=== PATIENT | female | born 1930 | race Caucasian/White ===

== ENCOUNTER → 2016-12-01 | Outpatient (REF) ==
[~2016-12-01] MED LIST: ASPIRIN 81M81 MG/TA2 PO; ASPIRIN E.C. 8181 MG PO; CALCIUM 600 PLU1 TAB PO; CALCIUM1 CAP PO; CYMBALTA 30MG30 MG PO; LEXAPRO 10MG10 MG PO; LOMOTIL 0.025 M1 TAB PO; MESTINON 6060 MG/TAB PO; MESTINON60 MG PO; NORVASC2.5 MG PO; PERCOCET 325 MG1 TA2 PO; PROTONIX40 MG PO; SYNTHROID0.025 MG PO; SYNTHROID0.1 MG/TAB PO; TYLENOL 325MG325 MG PO; TYLENOL ARTHRI650 M1 PO; ZOFRAN 4MG T4 MG/TAB PO; ZOLOFT50 MG PO
[2016-12-01 18:54] LABS: THYROID STIMULATING HORMONE 2.64 uIU/mL (0.465-4.680)
== END ==
LOC: ZLAB.WCH 18:06
PROVIDERS: Internal Medicine
DX: Z01.89 Encounter for other specified special examinations (principal)

== ENCOUNTER 2016-12-10 18:25 | Inpatient (IN) | payer MEDICARE, OTHER ==
[2016-12-10] VITALS (20 sets, daily range): BP systolic 156–163; BP diastolic 53–62; PULSE 54–60; TEMP 97.1–97.8; O2SAT 99–100
[~2016-12-10] VITALS: Ht 157.5 cm; Wt 61.0 kg
[~2016-12-10 18:25] MED LIST changes: -NORVASC2.5 MG PO
[2016-12-10 18:36] LABS: BASO # 0.1 (0.0-0.2); BASO % 0.6 % (0.0-2.0); EOS # 0.4 (0.0-0.7); EOS % 4.5 % (0-4.0); GRAN # 3.9 (1.4-6.5); GRAN % 44.5 % (42.2-75.2); HEMOGLOBIN 12.8 g/dl (12.5-16.0); LYMPH # 3.8 (1.2-3.4); LYMPH % 42.7 % (20.0-51.0); MEAN CELL VOLUME 94 fl (80.0-100.0); MEAN CORPUSCULAR HEMOGLOBIN 31 pg (27.0-31.0); MEAN CORPUSCULAR HGB CONC 33 g/dl (33.0-37.0); MEAN PLATELET VOLUME 10.6 fl (7.4-10.4); MONO # 0.7 (0.1-0.6); MONO % 7.6 % (1.7-9.3); PLATELET COUNT 248 K/mm3 (130-400); RED BLOOD COUNT 4.17 M/mm3 (4.10-5.30); REDCELL DISTRIBUTION WIDTH-CV 12.9 % (11.5-14.5); WHITE BLOOD COUNT 8.8 K/mm3 (4.8-10.8)
[2016-12-10 18:40] LABS: PROTHROMBIN TIME 10.7 SECONDS (9.7-12.8)
[2016-12-10 18:43] LABS: PARTIAL THROMBOPLASTIN TIME 30.4 SECONDS (26.0-37.0)
[2016-12-10 18:59] LABS: ADJUSTED CALCIUM 9.3 mg/dL (8.4-10.2); ALANINE AMINOTRANSFERASE 16 U/L (9-52); ALBUMIN 3.6 gm/dL (3.5-5.0); ALKALINE PHOSPHATASE 78 U/L (50-136); ANION GAP 7 mmol/L (7-16); BILIRUBIN,TOTAL 0.6 mg/dL (0.0-1.0); BLOOD UREA NITROGEN 14 mg/dL (7-17); CARBON DIOXIDE 26 mmol/L (22-30); CHLORIDE 106 mmol/L (98-107); CREATININE, serum 0.86 mg/dL (0.52-1.25); GLUCOSE 92 mg/dL (74-106); POTASSIUM 3.8 mmol/L (3.4-5.0); SODIUM 140 mmol/L (137-145); TOTAL PROTEIN 6.2 gm/dL (6.4-8.2)
[2016-12-10 19:19] LABS: TROPONIN-I < 0.012 ng/mL (0.000-0.034)
[2016-12-10 19:36] LABS: B-TYPE NATRIURETIC PEPTIDE 474 pg/mL (0-450)
[2016-12-10 19:55] LABS: PH 7 (5-8); URINE APPEARANCE Clear; URINE BACTERIA Rare /hpf; URINE BILIRUBIN Negative (NEGATIVE); URINE BLOOD 1+ (NEGATIVE); URINE COLOR Straw; URINE GLUCOSE Negative (NEGATIVE); URINE KETONE Negative (NEGATIVE); URINE RBC 0-2 /hpf; URINE UROBILINOGEN Negative (NEGATIVE); URINE WBC 20-50 /hpf
[2016-12-10 23:50] LABS: TROPONIN-I < 0.012 ng/mL (0.000-0.034)
[2016-12-11] VITALS (764 sets, daily range): BP systolic 134–179; BP diastolic 50–66; PULSE 59–79; TEMP 97.6–98.4; O2SAT 94–100
[2016-12-11 05:56] LABS: BASO % 0.1 % (0.0-2.0); GRAN # 7.8 (1.4-6.5); GRAN % 85.1 % (42.2-75.2); HEMATOCRIT 38.6 % (37.0-47.0); HEMOGLOBIN 12.7 g/dl (12.5-16.0); LYMPH # 1.3 (1.2-3.4); LYMPH % 13.7 % (20.0-51.0); MEAN CELL VOLUME 94 fl (80.0-100.0); MEAN CORPUSCULAR HEMOGLOBIN 31 pg (27.0-31.0); MEAN CORPUSCULAR HGB CONC 33 g/dl (33.0-37.0); MEAN PLATELET VOLUME 10.7 fl (7.4-10.4); MONO # 0.1 (0.1-0.6); MONO % 0.7 % (1.7-9.3); PLATELET COUNT 249 K/mm3 (130-400); RED BLOOD COUNT 4.13 M/mm3 (4.10-5.30); WHITE BLOOD COUNT 9.1 K/mm3 (4.8-10.8)
[2016-12-11 06:07] LABS: CALCIUM 8.7 mg/dL (8.4-10.2); CREATININE, serum 0.7 mg/dL (0.52-1.25); POTASSIUM 3.8 mmol/L (3.4-5.0)
[2016-12-11] MEDS ORDERED: PERCOCET 325 MG1 TA2 PO (09:04)
[2016-12-12 03:01] VITALS: BP 148/55; PULSE 72; TEMP 98.7
[2016-12-12 07:32] VITALS: BP 157/62; PULSE 65; TEMP 98.1
[2016-12-12 11:05] VITALS: BP 178/58; PULSE 67; TEMP 98.2
[2016-12-12 14:07] VITALS: BP 163/57; PULSE 57; TEMP 98.7
[2016-12-12] MEDS ORDERED: NORVASC2.5 MG PO (16:08)
== END 2016-12-12 20:19 | disposition home or self-care (01) | DRG 312 ==
LOC: COL.ER 18:25 → IMCU 19:57 → MEDICAL 19:57 → IMCU 23:30 → MEDICAL 12-11 16:04
PROVIDERS: Emergency Medicine; Nurse Practitioner Family
DX: R55 Syncope and collapse (principal); N39.0 Urinary tract infection, site not specified; E86.0 Dehydration; G70.00 Myasthenia gravis without (acute) exacerbation; E03.9 Hypothyroidism, unspecified; Z66 Do not resuscitate; F32.9 Major depressive disorder, single episode, unspecified; L71.9 Rosacea, unspecified; R53.1 Weakness; R53.81 Other malaise; I10 Essential (primary) hypertension; Z86.73 Personal history of transient ischemic attack (TIA), and cerebral infarction without residual deficits
CPT/HCPCS: 99222-AI; 99239; J0360; J1956; J2930; J7030

== ENCOUNTER → 2017-05-06 | Outpatient (CLI) | payer MEDICARE, OTHER ==
[~2017-05-06] MED LIST changes: +NORVASC2.5 MG PO
== END ==
LOC: COL.RAD 08:50
DX: G31.9 Degenerative disease of nervous system, unspecified (principal); I67.82 Cerebral ischemia; I10 Essential (primary) hypertension
CPT/HCPCS: A9585

== ENCOUNTER → 2017-05-08 | Outpatient (CLI) | payer MEDICARE, OTHER | LOC: MC.RAD 11:00 | DX: Z12.31 Encounter for screening mammogram for malignant neoplasm of breast (principal) ==

== ENCOUNTER → 2017-06-02 | Outpatient (REF) ==
[2017-06-02 19:04] LABS: THYROID STIMULATING HORMONE 2.83 uIU/mL (0.465-4.680)
== END ==
LOC: ZLAB.WCH 18:19
PROVIDERS: Internal Medicine
DX: Z01.89 Encounter for other specified special examinations (principal)

== ENCOUNTER → 2017-08-17 | Outpatient (REF) | LOC: ZLAB.WCH 18:02 | DX: Z01.89 Encounter for other specified special examinations (principal) ==

== ENCOUNTER → 2018-04-09 | Outpatient (REF) ==
[2018-04-09 18:56] LABS: THYROID STIMULATING HORMONE 3.63 uIU/mL (0.465-4.680)
== END ==
LOC: ZLAB.WCH 18:03
PROVIDERS: Internal Medicine
DX: Z01.89 Encounter for other specified special examinations (principal)

== ENCOUNTER → 2018-08-31 | Outpatient (REF) | LOC: ZLAB.WCH 17:58 | DX: Z01.89 Encounter for other specified special examinations (principal) ==

== ENCOUNTER → 2018-10-12 | Outpatient (REF) ==
[2018-10-12 18:56] LABS: THYROID STIMULATING HORMONE 2.56 uIU/mL (0.465-4.680)
== END ==
LOC: ZLAB.WCH 17:34
PROVIDERS: Internal Medicine
DX: Z01.89 Encounter for other specified special examinations (principal)